=== PATIENT | male | born 1960 | race African-American/Black ===

== ENCOUNTER 2023-05-25 00:47 | Emergency (ER) | payer SELFPAY ==
[2023-05-25] MEDS ORDERED: Morphine 4 MG/ML VIAL ONE ×2 (01:47→04:43)
[2023-05-25] MEDS ORDERED: fentaNYL 50 mcg/mL 1 mL Vial ONE (07:57)
[2023-05-25 09:19] LABS: INR-International Normal Ratio 3.8; PTT 46.1 sec (22.0-33.0); Prothrombin Time 39.9 sec (9.5-12.1)
[2023-05-25 09:47] LABS: #Basophils 0.1 10x3/uL (0.0-0.2); #Eosinphils 0.2 10x3/uL (0.0-0.5); #Monocytes 0.8 10x3/uL (0.0-1.1); #Neutrophils 3.1 10x3/uL (1.5-8.4); %Basophils 1.1 % (0.0-2.0); %Eosinophils 3.9 % (0.0-6.0); %Lymphocytes 25.9 % (18.0-47.0); %Monocytes 13.3 % (0.0-10.0); %Neutrophils 55.3 % (40.0-75.0); Hematocrit 38.2 % (38.8-50.0); Hemoglobin 13.3 g/dL (13.5-17.5); Mean Corpuscular HGB CONC 34.8 g/dL (32.0-36.0); Mean Corpuscular Hemoglobin 27.7 pg (27.0-33.0); Mean Corpuscular Volume 79.6 fl (81.2-95.1); Mean Platelet Volume 9.9 fl (7.4-10.4); Platelet Count 278 10x3/uL (150-450); RBC Distribution Width 13.9 % (11.5-14.5); White Blood Cell (WBC) Count 5.6 10x3/uL (3.5-10.5)
[2023-05-25 10:01] LABS: ALT (SGPT) 17 U/L (8-55); AST (SGOT) 11 U/L (5-34); Albumin 3.9 g/dL (3.4-4.8); Alkaline Phosphatase 74 U/L (40-110); Anion Gap 13 mmol/L (10-20); BUN (Urea Nitrogen) 9 mg/dL (8.4-25.7); Bilirubin, Total 0.4 mg/dL (0.2-1.2); Calc. Creatinine Clearance 0 mL/min (70-130); Calcium 8.9 mg/dL (7.8-10.44); Carbon Dioxide 23 mmol/L (23-31); Chloride 108 mmol/L (98-107); Estimated GFR 97; Glucose 175 mg/dL (80-115); Magnesium 1.8 mg/dL (1.6-2.6); Protein, Total 6.9 g/dL (5.8-8.1); Sodium 140 mmol/L (136-145)
[2023-05-25 10:04] LABS: Troponin I Less than 0.010 ng/mL (< 0.028)
== END 2023-05-25 14:38 | disposition short-term general hospital (02) ==
LOC: CSHERS 00:47
DX: I82.402 Acute embolism and thrombosis of unspecified deep veins of left lower extremity (principal); I82.401 Acute embolism and thrombosis of unspecified deep veins of right lower extremity; I11.0 Hypertensive heart disease with heart failure; I50.9 Heart failure, unspecified; E11.40 Type 2 diabetes mellitus with diabetic neuropathy, unspecified; Z86.718 Personal history of other venous thrombosis and embolism; Z55.6 Problems related to health literacy; Z91.120 Patient's intentional underdosing of medication regimen due to financial hardship; Z87.891 Personal history of nicotine dependence; Z79.84 Long term (current) use of oral hypoglycemic drugs; Z79.4 Long term (current) use of insulin
CPT/HCPCS: 36415; 80053; 83605; 83735; 83880; 84484; 85025; 85610; 85730; 93005; 96374; 96375; 96376; J2270; J3010

== ENCOUNTER 2023-06-17 14:34 | Emergency (ER) | payer OTHER ==
[2023-06-17] MEDS ORDERED: Morphine 4 MG/ML VIAL ONE (17:04)
[2023-06-17] MEDS ORDERED: Ondansetron PF 4 MG/2 ML Vial ONE (17:05)
[2023-06-17] MEDS ORDERED: Enoxaparin 120 MG/0.8 ML SYRINGE SC ONE (19:02)
== END 2023-06-17 20:42 ==
LOC: CSHERS 14:34
DX: I82.402 Acute embolism and thrombosis of unspecified deep veins of left lower extremity (principal); I11.0 Hypertensive heart disease with heart failure; I50.9 Heart failure, unspecified; I25.10 Atherosclerotic heart disease of native coronary artery without angina pectoris; E11.40 Type 2 diabetes mellitus with diabetic neuropathy, unspecified; Z87.891 Personal history of nicotine dependence
CPT/HCPCS: 96372; 96374; 96375; J1650; J2270; J2405